=== PATIENT | female | born 1930 | race Caucasian/White ===

== ENCOUNTER → 2017-03-31 | Outpatient (CLI) | payer MEDICARE, OTHER ==
[~2017-03-31] MED LIST: AMITIZA8 MCG PO; CARTIA XT300 MG PO; COUMADIN 2.5MG2.5 MG PO; COUMADIN 5MG TAB5 MG PO; HYDRALAZINE HCL25 MG PO; RISA-BID CAPLE1 EACH PO; SYNTHROID 50 M50 MCG PO; VALIUM 5 MG TAB5 MG PO; VITAMIN D250000 UNIT PO
== END ==
LOC: MRI 02-26 10:00
DX: R10.9 Unspecified abdominal pain (principal)
CPT/HCPCS: 74181